=== PATIENT | male | born 1985 | race Hispanic/Latino ===

== ENCOUNTER 2019-03-22 05:55 | Observation (INO) | payer OTHER ==
[2019-03-20 10:10] VITALS: BP 137/76
[2019-03-20 10:16] LABS: BASOPHILS % (AUTO) 0.5 % (0.0-5.0); EOSINOPHILS % (AUTO) 5.4 % (0.0-8.0); HEMATOCRIT 46.1 % (42-54); LYMPHOCYTES % (AUTO) 27.1 % (21.0-51.0); MEAN CORPUSCULAR HEMOGLOBIN 28.4 pg (27.0-33.0); MEAN CORPUSCULAR HGB CONC 33.8 g/dL (32.0-36.0); MONOCYTES % (AUTO) 5.9 % (3.0-13.0); NEUTROPHILS % (AUTO) 61.1 % (40.0-77.0); PLATELET COUNT (AUTO) 253 K/uL (130-400); RED BLOOD CELL COUNT(AUTO) 5.49 MIL/uL (4.50-6.20); WHITE BLOOD COUNT (AUTO) 7.9 K/uL (4.8-10.8)
[2019-03-20 10:28] LABS: CREATININE 0.7 mg/dL (0.5-1.5); POTASSIUM 4.2 mmol/L (3.5-5.1)
[2019-03-20 10:32] LABS: INR 0.91 (0.85-1.15); PARTIAL THROMBOPLASTIN TIME 27.7 SEC (26.3-35.5); PROTHROMBIN TIME 9.6 SEC (9.6-11.6)
[~2019-03-22] VITALS: Ht 171.4 cm; Wt 114.4 kg
[2019-03-22] VITALS (12 sets, daily range): BP systolic 115–126; BP diastolic 68–81
[~2019-03-22 05:55] MED LIST: SODIUM CHLORIDE 0.9% 1000ML 1,000 ML IV SCH
[2019-03-22] MEDS ORDERED: ISOPROTERENOL HCL 0.2 MG/ML AMP/VIAL/BAG ONE (07:23)
[2019-03-22] MEDS ORDERED: SODIUM CHLORIDE 0.9% 1000ML 1,000 ML IV SCH (08:00)
[2019-03-22] MEDS ORDERED: MEPERIDINE-PF 25 MG/ML SYG ONE ×2 (08:06→09:47)
[2019-03-22] MEDS ORDERED: HEPARIN SODIUM 1000UNIT/ML 10ML VIAL ONE (08:06)
[2019-03-22] MEDS ORDERED: MIDAZOLAM HCL 1 MG/ML 2ML VIAL ONE ×2 (08:06→09:47)
[2019-03-22] MEDS ORDERED: LIDOCAINE HCL 2% 20ML ONE (08:07)
[2019-03-22] MEDS ORDERED: ADENOSINE 3 MG/ML 2ML VIAL IV ONE (09:18)
[2019-03-22] MEDS ORDERED: SOTA80TA PO (15:06)
[2019-03-22] MEDS ORDERED: AEC81 PO (15:06)
[2019-03-22] MEDS ORDERED: LORA-868 PO (15:06)
[2019-03-22] MEDS ORDERED: ACETAMINOPHEN 325 MG TAB PO PRN (16:45)
[2019-03-22] MEDS: FAMOTIDINE 20MG TAB 20 MG TAB PO SCH (20:33)
[2019-03-23 00:48] VITALS: BP 118/66
[2019-03-23 04:47] VITALS: BP 115/68
[2019-03-23 07:00] VITALS: BP 138/68
--- NOTE | 2019-03-23 08:15 | NUR ---
AM ASSESSMENT PT AMBULATING IN RM. A/O X 3. NO SOB. NO DISTRESS NOTED. DENIES CHEST PAIN OR DISCOMFORT. DENIES PALPITATIONS. DENIES INCISIONAL PAIN. TELE: SR 90s-STACH 100s. DENIES N/V AND/OR DIARRHEA. BILATERAL GROINS DSG DRY & INTACT. NO BLEEDING, NO HEMATOMA. BILATERAL GROIN SOFT, NON-TENDER. (+) BILATERAL PEDAL PULSES. BLE PINK & WARM TO TOUCH. UP AD MATY. INSTRUCTED TO CALL FOR ASSISTANCE. CALL SUSSY W/IN REACH.
[2019-03-23] MEDS: FAMOTIDINE 20MG TAB 20 MG TAB PO SCH (08:40)
[2019-03-23 11:00] VITALS: BP 129/88
--- NOTE | 2019-03-23 11:05 | NUR ---
DISCHARGE TELE EDWARD REMOVED. IV DISCONTINUED.
--- NOTE | 2019-03-23 11:40 | NUR ---
DISCHARGE VERBAL & WRITTEN DISCHARGE INSTRUCTIONS REVIEWED & GIVEN TO PT. QUESTIONS ENCOURAGED & CLARIFIED. PROPER CARE & ACTIVITY AFTER CARDIAC ABLATION REVIEWED. DISCONTINUED MEDICATION REVIEWED. NO NEW PRESCRIBED MEDICATIONS. PT TO GATHER PERSONAL BELONGINGS. WILL NOTIFY STAFF WHEN READY TO BE TAKEN TO PRIVATE VEHICLE.
--- NOTE | 2019-03-23 12:00 | NUR ---
DISCHARGE PT TAKEN TO PRIVATE VEHICLE VIA WC BY Lily REIS PCP. NO DISTRESS NOTED. PT'S MOTHER AWAITING FOR PT IN PRIVATE VEHICLE.
== END 2019-03-23 12:00 | disposition home or self-care (01) ==
LOC: DAH 05:55 → DAHIP 05:56 → 2DH 05:57
PROVIDERS: ADMIT Internal Medicine; ATTEND Internal Medicine
DX: I47.1 Supraventricular tachycardia (principal); E11.9 Type 2 diabetes mellitus without complications; Z79.899 Other long term (current) drug therapy; Z79.01 Long term (current) use of anticoagulants
CPT/HCPCS: 36415; 80048; 85025; 85610; 85730; 93005; 93613; 93621; 93623; 93653; A4606; A4649; C1730 ×4; C1732; C1894 ×5; G0378 ×25; J0153; J1644; J2175 ×2; J2250 ×2; J3490 ×2; J7030; 99156; 99157

== ENCOUNTER 2020-12-19 06:07 | Day surgery (SDC) | payer BC, OTHER ==
[2020-12-16 11:56] LABS: BASOPHILS % (AUTO) 0.5 % (0.0-5.0); EOSINOPHILS % (AUTO) 3.3 % (0.0-8.0); HEMATOCRIT 47.6 % (42-54); MEAN CORPUSCULAR HEMOGLOBIN 27.9 pg (27.0-33.0); MEAN CORPUSCULAR VOLUME 82.1 fL (79-99); MONOCYTES % (AUTO) 6.3 % (3.0-13.0); NEUTROPHILS % (AUTO) 57.7 % (40.0-77.0); PLATELET COUNT (AUTO) 264 K/uL (130-400); RED CELL DISTRIBUTION WIDTH 12.8 % (11.0-15.5); WHITE BLOOD COUNT (AUTO) 8.5 K/uL (4.8-10.8)
[2020-12-16 12:07] LABS: CREATININE 0.7 mg/dL (0.5-1.5); POTASSIUM 3.7 mmol/L (3.5-5.1)
[2020-12-16 12:34] LABS: INR 1.01 (0.85-1.15)
[2020-12-18 11:10] VITALS: BP 135/75
[2020-12-19] VITALS (9 sets, daily range): BP systolic 105–128; BP diastolic 69–78
[~2020-12-19] VITALS: Ht 172.7 cm; Wt 105.1 kg
[~2020-12-19 06:07] MED LIST changes: +AEC81 PO; +EMPA1TAB7 PO; +FLEC50TA3 PO; +FLUT16H NASAL; +LORA-868 PO; +METO50TA18 PO; +SEMA3TAB PO; -SODIUM CHLORIDE 0.9% 1000ML 1,000 ML IV SCH; +SODIUM CHLORIDE 0.9% 500ML 500 ML IV SCH
[2020-12-19] MEDS ORDERED: SODIUM CHLORIDE 0.9% 1000ML 1,000 ML IV ONE (06:18)
[2020-12-19] MEDS ORDERED: LIDOCAINE HCL 2% 20ML ONE (07:44)
[2020-12-19] MEDS ORDERED: MEPERIDINE-PF 25 MG/ML SYG ONE ×4 (07:44→11:13)
[2020-12-19] MEDS ORDERED: MIDAZOLAM HCL 1 MG/ML 2ML VIAL ONE ×3 (07:44→11:13)
[2020-12-19] MEDS ORDERED: ISOPROTERENOL HCL 0.2 MG/ML AMP/VIAL/BAG ONE (07:44)
[2020-12-19] MEDS ORDERED: HEPARIN SODIUM 1000UNIT/ML 10ML VIAL ONE (07:44)
== END 2020-12-19 14:55 | disposition home or self-care (01) ==
LOC: DAH 06:07
PROVIDERS: ATTEND Internal Medicine Cardiovascular Disease
DX: I47.1 Supraventricular tachycardia (principal); Z79.01 Long term (current) use of anticoagulants; Z79.82 Long term (current) use of aspirin; Z79.899 Other long term (current) drug therapy; Z98.890 Other specified postprocedural states; Z72.89 Other problems related to lifestyle; Z87.891 Personal history of nicotine dependence
CPT/HCPCS: 36415; 80048; 82948 ×2; 85025; 85610; 85730; 93613; 93621; 93653; A4215; A4216; A4221; A4222; A4223 ×3; A4649 ×2; A4663; C1730 ×4; C1731; C1732; C1894 ×5; J1644 ×2; J2175 ×4; J2250 ×3; J3490 ×2; J7030; 99156; 99157